=== PATIENT | female | born 1995 | race Caucasian/White ===

== ENCOUNTER 2019-09-09 19:45 | Emergency (ER) | payer SELFPAY ==
[~2019-09-09] VITALS: Ht 157.5 cm; Wt 53.0 kg
[2019-09-09] MEDS ORDERED: BACITRACIN ZINC OINT UDPKT TOP ONE (20:30)
[2019-09-09] MEDS ORDERED: TETANUS, DIPHTHERIA, PERTUSSIS VAC/PF 0.5ML (>7YR OLD) IM ONE (20:30)
[2019-09-09] MEDS ORDERED: ACETAMINOPHEN 650MG/20.3ML UDC PO ONE (20:30)
[2019-09-09 23:06] VITALS: BP 130/80
== END 2019-09-09 23:07 | disposition home or self-care (01) ==
LOC: ER 19:45
DX: S81.851A Open bite, right lower leg, initial encounter (principal); Z23 Encounter for immunization; W54.0XXA Bitten by dog, initial encounter; Y93.89 Activity, other specified; Y92.018 Other place in single-family (private) house as the place of occurrence of the external cause
CPT/HCPCS: 90471; 90715; 99283